=== PATIENT | female | born 1955 | race African-American/Black ===

== ENCOUNTER 2016-08-22 14:17 | Emergency (ER) | payer MEDICAID ==
[~2016-08-22] VITALS: Ht 154.9 cm; Wt 68.6 kg
[~2016-08-22 14:17] MED LIST: ALBU2.5V11 NEB; BENZ100C4 PO; CLON-365 PO; CYCL-259 PO; DOXY-168 PO; GABA100C8 PO; METH-356 PO
[2016-08-22] MEDS ORDERED: SODIUM CHLORIDE FLUSH 10ML SYR IVF ONE (15:00)
[2016-08-22 15:27] LABS: ASPARTATE AMINO TRANSFERASE 30 U/L (15-37); BLOOD UREA NITROGEN 17 mg/dL (7-18)
[2016-08-22 15:35] LABS: IS PT STATUS REG ER OR PRE ER? YES
[2016-08-22] MEDS ORDERED: OMNIPAQUE 350 MG/ML, 100ML BOTTLE ONE (17:58)
[2016-08-22 19:18] VITALS: BP 141/88
== END 2016-08-22 19:22 | disposition home or self-care (01) ==
LOC: ED 16:23
DX: M54.6 Pain in thoracic spine (principal); R51 Headache; J44.9 Chronic obstructive pulmonary disease, unspecified
CPT/HCPCS: 36415; 70450; 71010; 71275; 80053; 84484; 85025; 85379; 85610; 85730; 93005; Q9967